=== PATIENT | female | born 1940 | race Caucasian/White ===

== ENCOUNTER 2016-07-10 11:30 | Inpatient (IN) | payer MEDICARE, MEDICAID ==
[2016-07-14] MEDS ORDERED: ceFAZolin 1 GM in NORMAL SALINE MINI-BAG+ 100 ML IV SCH (21:01)
[2016-07-15] MEDS ORDERED: MIDAZOLAM HCL 2 MG/2 ML SYR IV ONE (06:49)
[2016-07-15] MEDS ORDERED: LIDOCAINE HCL 1% 20 ML VIAL SUBCUT ONE ×2 (06:49→13:00)
[2016-07-15] MEDS ORDERED: ceFAZolin 1 GM in NORMAL SALINE MINI-BAG+ 100 ML IV SCH (06:50)
[2016-07-15] MEDS ORDERED: TRANEXAMIC ACID 1,000 MG in NORMAL SALINE 100 ML IV SCH ×2 (07:00)
[2016-07-15] MEDS ORDERED: FAMOTIDINE IN SALINE, ISO-OSM 20 MG/50 ML PIGGYBACK IV SCH (07:00)
[2016-07-15] MEDS ORDERED: LACTATED RINGERS 1,000 ML IV SCH ×3 (07:00→13:00)
[2016-07-15] MEDS ORDERED: MORPHINE SULFATE/PF 10 MG/10 ML VIAL ONE ×2 (07:05→07:10)
[2016-07-15] MEDS ORDERED: KETOROLAC TROMETHAMINE 30 MG/ML VIAL ONE (07:05)
[2016-07-15] MEDS ORDERED: BACITRACIN 14 APP/14 GM TUBE TOPICAL ONE (07:06)
[2016-07-15] MEDS ORDERED: BACITRACIN 50,000 UNITS VIAL IM ONE (07:07)
[2016-07-15] MEDS ORDERED: ROPIVACAINE HCL 0.5% 30 ML ONE (07:07)
[2016-07-15] MEDS ORDERED: PHENYLEPHRINE HCL 10,000 MCG/ML VIAL ONE (07:09)
[2016-07-15] MEDS ORDERED: FENTANYL 100 MCG/2 ML VIAL ONE (07:09)
[2016-07-15] MEDS ORDERED: EPHEDrine SULFATE 50 MG/ML VIAL ONE (07:10)
[2016-07-15] MEDS ORDERED: NORMAL SALINE FLUSH 20 ML ONE (07:10)
[2016-07-15] MEDS ORDERED: TETRACAINE HCL 1% 20 MG/2 ML AMP ONE ×2 (07:10→11:50)
[2016-07-15] MEDS ORDERED: ceFAZolin 1 GM/10 ML VIAL ONE (07:11)
[2016-07-15] MEDS ORDERED: TRANEXAMIC ACID 1,000 MG/10 ML VIAL IV ONE ×2 (07:11→17:00)
[2016-07-15] MEDS ORDERED: MIDAZOLAM HCL 2 MG/2 ML VIAL ONE (07:11)
[2016-07-15] MEDS ORDERED: KETAMINE HCL 500 MG/10 ML VIAL ONE (12:31)
[2016-07-15] MEDS ORDERED: NALBUPHINE HCL 10 MG/ML AMP IV PRN ×2 (13:00→15:40)
[2016-07-15] MEDS ORDERED: NALOXONE HCL 0.4 MG/ML VIAL IV PRN ×6 (13:00→15:40)
[2016-07-15] MEDS ORDERED: DIPHENHYDRAMINE 25 MG CAPSULE PO PRN ×2 (13:00→15:40)
[2016-07-15] MEDS ORDERED: FENTANYL 100 MCG/2 ML VIAL IV PRN (13:00)
[2016-07-15] MEDS ORDERED: MORPHINE SULFATE 10 MG/ML SYR IV PRN (13:00)
[2016-07-15] MEDS ORDERED: HYDROmorphone HCL 1 MG/ML SYR IV PRN (13:00)
[2016-07-15] MEDS ORDERED: DIPHENHYDRAMINE 50 MG/ML VIAL IV PRN ×2 (13:00→15:40)
[2016-07-15] MEDS ORDERED: ONDANSETRON HCL 4 MG/2 ML VIAL IV PRN ×2 (13:00→15:40)
--- NOTE | 2016-07-15 16:06 | OPERATIVE REPORT ---
DATE OF SURGERY: 07/15/16 SURGEON: Derik Lebron DO ANESTHESIA: Spinal with sedation. PREOPERATIVE DIAGNOSIS: Right knee osteoarthritis. POSTOPERATIVE DIAGNOSIS: Right knee osteoarthritis. OPERATION PERFORMED: Right total knee arthroplasty. ESTIMATED BLOOD LOSS: 50 mL. COMPLICATIONS: None. TOTAL TOURNIQUET TIME: 80 minutes. SPECIMENS REMOVED: Diseased bone and soft tissue. ORTHOPEDIC IMPLANTS 1. John Persona cobalt bone cement with Gentamycin. 2. John Persona personalized knee system all polyethylene patella 35 mm diameter, 9 mm thickness. 3. John Persona Vivacit E highly crossed linked polyethylene articular surface fixed bearing posterior stabilized right 10 mm thickness. 4. John Persona natural tibia cemented 5 degree stemmed right size E. 5. John Persona femur cemented posterior stabilized narrow right size 9. PROCEDURE NOTE: The patient was given a spinal anesthetic in the preoperative holding area and was brought to the OR and the right lower extremity was prepped and draped in sterile fashion after applying a well padded tourniquet to the right proximal thigh. A midline longitudinal incision was made and the dissection was carried down to the extensor mechanism. A medial parapatellar arthrotomy was made and series of soft tissue releases were completed, and the portion of the anterior fat pad was removed for visualization purposes. The meniscus was also removed as was the anterior cruciate ligament. The knee was brought up into flexion and a intramedullary femoral guide was placed followed by application of a femoral cutting jig, an appropriate distal femoral cut was made and the extramedullary tibial guide was then placed and the tibia was cut as appropriate heights with 10 mm and 2 mm of bone removed for the lateral and medial compartments respectively. Instrumentation was removed and a 10 mm spacer block was placed which was pretty tight both medially and laterally in extension, so an additional 2 mm was removed from the distal tibia and has had good balancing of the knee with the Ranawat block. The remainder of the femoral cuts were made with the cutting block of the appropriate size. All the tibial bone defects were then made and the trial implants were inserted and taken through a full range of motion and was noted to be exceptionally stable and well balanced. The patellar cut was then made and the patellar button was inserted after doing the femoral bone cuts and drill holes. All the appropriate bone defects were completed and the trial implants removed, and the knee was copiously irrigated with bacitracin infused with normal saline. The bone was tamped dry and brought up into flexion. The cement was impacted and interdigitated into the bony surfaces, followed by application of the prosthetic implants. A trial polyethylene was inserted and the knee was brought up into full extension. All excess cement was removed throughout the cementing process. The patellar button was also cemented into place. After the cement had hardened, the tourniquet was let down and any small bleeders were cauterized with an electrocautery device. The knee was copiously irrigated with bacitracin infused with normal saline. A Hemovac drain was placed and the final polyethylene was snapped into place. The knee was well balanced in both flexion and extension. The knee was closed in a stepwise fashion utilizing #2 Fiberwire for the medial parapatellar arthrotomy intermittently with #1 Vicryl. The remainder of the closure was completed with # 1 Vicryl, 0 Vicryl, 2-0 Vicryl and a 4-0 Monocryl run subcutaneously at the level of the skin, followed by application of Dermabond and an Aquacel occlusive dressing, followed by an Alexandre bandage. MICHEL
[2016-07-15] MEDS ORDERED: TRANEXAMIC ACID 1,000 MG in NORMAL SALINE MINI-BAG+ 100 ML IV ONE (16:40)
[2016-07-15] MEDS ORDERED: LACTATED RINGERS 1,000 ML IV ONE (17:08)
[2016-07-15] MEDS: ceFAZolin 1 GM in NORMAL SALINE MINI-BAG+ 100 ML IV SCH (17:52)
[2016-07-15] MEDS: DOCUSATE SODIUM 100 MG CAPSULE PO SCH (20:35)
[2016-07-15] MEDS: ASCORBIC ACID 500 MG TABLET PO SCH (20:36)
[2016-07-15] MEDS: HYDROcodone/APAP 5/325 MG 1 TAB TABLET PO PRN (20:36)
[2016-07-15] MEDS: ENOXAPARIN SODIUM 30 MG/0.3 ML SYR SUBCUT SCH (20:43)
[2016-07-16] MEDS: ceFAZolin 1 GM in NORMAL SALINE MINI-BAG+ 100 ML IV SCH ×2 (00:51→08:24)
[2016-07-16] MEDS: HYDROcodone/APAP 5/325 MG 1 TAB TABLET PO PRN ×4 (04:15→20:05)
[2016-07-16 05:27] LABS: EOSINOPHILS 2.8 % (0.0-6.0); EOSINOPHILS# 0.1 X 10^3uL (0.0-0.4); HEMATOCRIT 36.5 % (36.0-48.0); HEMOGLOBIN 12.3 g/dL (12.0-16.0); LYMPHOCYTES 28.2 % (20.0-40.0); LYMPHOCYTES# 1.3 X 10^3uL (0.8-3.8); MEAN CELL VOLUME 88.4 fL (80.0-100.0); MEAN CORPUS. HGB CONCENTRATION 33.6 g/dL (32.0-36.0); MEAN CORPUSCULAR HEMOGLOBIN 29.7 pg (29.0-35.0); MONOCYTES# 0.4 X 10^3uL (0.2-1.0); NEUTROPHILS# 2.8 X 10^3uL (2.6-6.7); RED BLOOD COUNT 4.13 X 10^6uL (4.20-6.10); RED CELL DISTRIBUTION WIDTH 12.4 % (11.5-14.5); WHITE BLOOD COUNT 4.6 X 10^3uL (3.9-10.7)
[2016-07-16] MEDS: ACETAMINOPHEN 325 MG TABLET PO PRN (06:44)
[2016-07-16] MEDS: MULTIVITAMINS THERAPEUTIC 1 TABLET PO SCH (08:21)
[2016-07-16] MEDS: BISACODYL 5 MG TABLET PO SCH (08:21)
[2016-07-16] MEDS: DOCUSATE SODIUM 100 MG CAPSULE PO SCH ×2 (08:22→20:05)
[2016-07-16] MEDS: FOLIC ACID 1 MG TABLET PO SCH (08:22)
[2016-07-16] MEDS: ASCORBIC ACID 500 MG TABLET PO SCH ×2 (08:22→20:05)
[2016-07-16] MEDS: ENOXAPARIN SODIUM 30 MG/0.3 ML SYR SUBCUT SCH ×2 (08:24→20:05)
[2016-07-16] MEDS: POLYETHYLENE GLYCOL 3350 17 GM POWD.PACK PO SCH (08:30)
--- NOTE | 2016-07-16 08:59 | PROGRESS NOTE: Orthopedics ---
Orthopedic PN Subjective - Subjective Principal Diagnosis: s/p right total knee arthroplasty Post-op Day: 1 Interval history: Patient did well overnight. Her pain was well-controlled. Tolerating a regular diet Hemovac output was low. Ortho PN Objective Exam - Latest Vital Signs and I&O Latest Vital Signs/I&O: Vital Signs Temp 37.2 C 07/16/16 06:28 Pulse 61 07/16/16 06:28 Resp 17 07/16/16 06:28 BP 149/66 07/16/16 06:28 Pulse Ox 93 07/16/16 06:28 Intake & Output 07/15/16 07/16/16 07/16/16 17:59 05:59 17:59 Intake Total 3150 1200 Output Total 330 480 Balance 2820 720 Weight 72.575 kg Intake: IV 2900 700 Right Wrist 2900 700 Oral 250 500 Output: Drainage 60 230 Right Knee 60 230 Urine 270 250 Other: Urine Appearance Clear Clear Urine Color Yellow Light Sharla Uretheral (Sorto) Yellow Voiding Method Indwelling Catheter Indwelling Catheter # Bowel Movements 0 - Post-Operative Exam Post-op Day: 1 Dressing Status: dry & intact Drainage Amount: none Distal Pulses: +2 Active Motor: intact Sensation: intact Myron's sign: Negative Calf tenderness: no Weight bearing status: as tolerated - Lab Labs: Laboratory Last Values WBC 4.6 X 10^3uL (3.9-10.7) 07/16/16 05:00 RBC 4.13 X 10^6uL (4.20-6.10) L 07/16/16 05:00 Hgb 12.3 g/dL (12.0-16.0) 07/16/16 05:00 Hct 36.5 % (36.0-48.0) 07/16/16 05:00 MCV 88.4 fL (80.0-100.0) 07/16/16 05:00 MCH 29.7 pg (29.0-35.0) 07/16/16 05:00 MCHC 33.6 g/dL (32.0-36.0) 07/16/16 05:00 RDW 12.4 % (11.5-14.5) 07/16/16 05:00 Plt Count 132 X 10^3uL (130-440) 07/16/16 05:00 MPV 8.0 fL (7.4-10.4) 07/16/16 05:00 Neutrophils % 59.0 % (54.0-75.0) 07/16/16 05:00 Lymphocytes % 28.2 % (20.0-40.0) 07/16/16 05:00 Eosinophils % 2.8 % (0.0-6.0) 07/16/16 05:00 Basophils % 1.0 % (0.0-2.0) 07/16/16 05:00 Neutrophils # 2.8 X 10^3uL (2.6-6.7) 07/16/16 05:00 Lymphocytes # 1.3 X 10^3uL (0.8-3.8) 07/16/16 05:00 Monocytes 9.0 % (2.0-10.0) 07/16/16 05:00 Monocytes # 0.4 X 10^3uL (0.2-1.0) 07/16/16 05:00 Eosinophils # 0.1 X 10^3uL (0.0-0.4) 07/16/16 05:00 Basophils # 0.0 X 10^3uL (0.0-0.1) 07/16/16 05:00 Assessment and Plan-Ortho - Date of Encounter Date of Encounter: 07/16/16 (1) Status post total knee replacement, right Status: Acute Assessment and plan: The patient will be up and ambulating with physical therapy. We will continue with DVT and antibiotic prophylaxis. Current Visit: Yes Quality Questions - VTE Prophylaxis Assessment VTE Present on Admission?: No Patient at risk for venous thromboembolism?: Yes VTE Risk Level: High Risk Pharmaceutical VTE prophylaxis contraindication reason: not indicated Mechanical VTE prophylaxis contraindication reason: not indicated
[2016-07-16] MEDS: LACTATED RINGERS 1,000 ML IV SCH ×2 (10:10→11:50)
[2016-07-17] MEDS: LACTATED RINGERS 1,000 ML IV SCH (00:04)
[2016-07-17] MEDS: HYDROcodone/APAP 5/325 MG 1 TAB TABLET PO PRN ×4 (02:35→21:44)
[2016-07-17 05:44] LABS: BASOPHILS 0.2 % (0.0-2.0); EOSINOPHILS 1.7 % (0.0-6.0); EOSINOPHILS# 0.1 X 10^3uL (0.0-0.4); HEMATOCRIT 33.9 % (36.0-48.0); HEMOGLOBIN 11.4 g/dL (12.0-16.0); LYMPHOCYTES 12.9 % (20.0-40.0); LYMPHOCYTES# 0.8 X 10^3uL (0.8-3.8); MEAN CELL VOLUME 88.2 fL (80.0-100.0); MEAN CORPUS. HGB CONCENTRATION 33.5 g/dL (32.0-36.0); MEAN CORPUSCULAR HEMOGLOBIN 29.6 pg (29.0-35.0); MEAN PLATELET VOLUME 8.4 fL (7.4-10.4); MONOCYTES 8.4 % (2.0-10.0); MONOCYTES# 0.5 X 10^3uL (0.2-1.0); NEUTROPHILS 76.8 % (54.0-75.0); NEUTROPHILS# 4.5 X 10^3uL (2.6-6.7); RED BLOOD COUNT 3.84 X 10^6uL (4.20-6.10); RED CELL DISTRIBUTION WIDTH 11.9 % (11.5-14.5); WHITE BLOOD COUNT 5.9 X 10^3uL (3.9-10.7)
[2016-07-17] MEDS: MULTIVITAMINS THERAPEUTIC 1 TABLET PO SCH (08:05)
[2016-07-17] MEDS: ASCORBIC ACID 500 MG TABLET PO SCH ×2 (08:05→11:03)
[2016-07-17] MEDS: DOCUSATE SODIUM 100 MG CAPSULE PO SCH ×2 (08:05→21:43)
[2016-07-17] MEDS: ENOXAPARIN SODIUM 30 MG/0.3 ML SYR SUBCUT SCH ×2 (08:05→21:43)
[2016-07-17] MEDS: BISACODYL 5 MG TABLET PO SCH (08:05)
[2016-07-17] MEDS: FOLIC ACID 1 MG TABLET PO SCH (08:05)
[2016-07-17] MEDS: POLYETHYLENE GLYCOL 3350 17 GM POWD.PACK PO SCH (08:05)
[2016-07-17] MEDS ORDERED: traZODone HCL 50 MG TABLET PO SCH (11:00)
[2016-07-17] MEDS ORDERED: ATORVASTATIN CALCIUM 10 MG TABLET PO SCH (11:00)
[2016-07-17] MEDS: LISINOPRIL 20 MG TABLET PO SCH (11:09)
[2016-07-17] MEDS: CALCIUM/VIT D 600 MG/400 IU 1 TAB TABLET PO SCH (11:09)
[2016-07-17] MEDS: AMLODIPINE BESYLATE 5 MG TABLET PO SCH (11:09)
[2016-07-17] MEDS: PAROXETINE HCL 20 MG TABLET PO SCH (11:10)
[2016-07-17] MEDS: HYDROCHLOROTHIAZIDE 25 MG TABLET PO SCH (11:10)
--- NOTE | 2016-07-17 15:19 | RADIOLOGY REPORT ---
Two views of the right knee are compared with prior films dated 04/16/2016. There has been interval placement of a right total knee arthroplasty. Components appear intact and in appropriate position. No other change is identified. IMPRESSION: Unremarkable right total knee arthroplasty. MTDD
[2016-07-17] MEDS ORDERED: [UNRECOGNIZED DRUG - OTHER] OPHTHALMIC SCH (21:00)
[2016-07-17] MEDS ORDERED: MINERAL OIL OPHTHALMIC SCH (21:00)
[2016-07-17] MEDS ORDERED: PETROLATUM WHITE OPHTHALMIC SCH (21:00)
[2016-07-17] MEDS: traZODone HCL 50 MG TABLET PO SCH (21:43)
[2016-07-17] MEDS: ATORVASTATIN CALCIUM 10 MG TABLET PO SCH (21:43)
[2016-07-17] MEDS: POLYVINYL ALCOHOL 1.4% OPHTH 75 DROP/15 ML BTL OPHTHALMIC SCH (21:44)
[2016-07-18] MEDS: SENNOSIDES/DOCUSATE SODIUM 1 TAB TABLET PO SCH (05:17)
[2016-07-18] MEDS: HYDROcodone/APAP 5/325 MG 1 TAB TABLET PO PRN ×3 (05:17→21:04)
[2016-07-18 05:55] LABS: BASOPHILS 0.8 % (0.0-2.0); EOSINOPHILS 2.1 % (0.0-6.0); EOSINOPHILS# 0.1 X 10^3uL (0.0-0.4); HEMATOCRIT 33.9 % (36.0-48.0); HEMOGLOBIN 11.4 g/dL (12.0-16.0); LYMPHOCYTES 22.2 % (20.0-40.0); LYMPHOCYTES# 1.1 X 10^3uL (0.8-3.8); MEAN CELL VOLUME 87.6 fL (80.0-100.0); MEAN CORPUS. HGB CONCENTRATION 33.8 g/dL (32.0-36.0); MEAN CORPUSCULAR HEMOGLOBIN 29.6 pg (29.0-35.0); MEAN PLATELET VOLUME 8.5 fL (7.4-10.4); MONOCYTES 8.5 % (2.0-10.0); MONOCYTES# 0.4 X 10^3uL (0.2-1.0); NEUTROPHILS 66.4 % (54.0-75.0); NEUTROPHILS# 3.4 X 10^3uL (2.6-6.7); RED BLOOD COUNT 3.87 X 10^6uL (4.20-6.10); RED CELL DISTRIBUTION WIDTH 12.3 % (11.5-14.5)
[2016-07-18] MEDS: CALCIUM/VIT D 600 MG/400 IU 1 TAB TABLET PO SCH (08:32)
[2016-07-18] MEDS: DOCUSATE SODIUM 100 MG CAPSULE PO SCH ×2 (08:33→20:35)
[2016-07-18] MEDS: BISACODYL 5 MG TABLET PO SCH (08:33)
[2016-07-18] MEDS: FOLIC ACID 1 MG TABLET PO SCH (08:34)
[2016-07-18] MEDS: HYDROCHLOROTHIAZIDE 25 MG TABLET PO SCH (08:35)
[2016-07-18] MEDS: ENOXAPARIN SODIUM 30 MG/0.3 ML SYR SUBCUT SCH ×2 (08:36→20:41)
[2016-07-18] MEDS: POLYETHYLENE GLYCOL 3350 17 GM POWD.PACK PO SCH (08:37)
[2016-07-18] MEDS: MULTIVITAMINS THERAPEUTIC 1 TABLET PO SCH (08:40)
[2016-07-18] MEDS: PAROXETINE HCL 20 MG TABLET PO SCH (08:43)
[2016-07-18] MEDS: ASCORBIC ACID 500 MG TABLET PO SCH (08:43)
[2016-07-18] MEDS: LISINOPRIL 20 MG TABLET PO SCH (08:44)
[2016-07-18] MEDS: AMLODIPINE BESYLATE 5 MG TABLET PO SCH (08:45)
[2016-07-18] MEDS: ACETAMINOPHEN 325 MG TABLET PO PRN (08:50)
--- NOTE | 2016-07-18 15:25 | PROGRESS NOTE: Orthopedics ---
Orthopedic PN Subjective - Subjective Principal Diagnosis: s/p TKA Post-op Day: 2 Interval history: Pt seen and examined at bedside on 07/17/16 on post op day 2. Pt doing well. Ambulating. Some difficulty with transfers. Tolerating reg diet. Pain controlled. Ortho PN Objective Exam - Latest Vital Signs and I&O Latest Vital Signs/I&O: Vital Signs Temp 37.7 C H 07/18/16 11:00 Pulse 77 07/18/16 11:00 Resp 16 07/18/16 11:00 BP 117/54 07/18/16 11:00 Pulse Ox 95 07/18/16 11:00 Intake & Output 07/17/16 07/18/16 07/18/16 17:59 05:59 17:59 Intake Total 1100 450 Output Total 1200 1200 Balance -100 -750 Intake: Oral 1100 450 Output: Urine 1200 1200 Other: Urine Appearance Clear Clear Clear Urine Color Straw Light Sharla Straw Voiding Method Toilet Toilet # Bowel Movements 0 - Post-Operative Exam Post-op Day: 2 Dressing Status: dry & intact Drainage Amount: none Distal Pulses: +2 Active Motor: intact Sensation: intact Myron's sign: Negative Calf tenderness: no Weight bearing status: full - Lab Labs: Laboratory Last Values WBC 5.0 X 10^3uL (3.9-10.7) 07/18/16 05:00 RBC 3.87 X 10^6uL (4.20-6.10) L 07/18/16 05:00 Hgb 11.4 g/dL (12.0-16.0) L 07/18/16 05:00 Hct 33.9 % (36.0-48.0) L 07/18/16 05:00 MCV 87.6 fL (80.0-100.0) 07/18/16 05:00 MCH 29.6 pg (29.0-35.0) 07/18/16 05:00 MCHC 33.8 g/dL (32.0-36.0) 07/18/16 05:00 RDW 12.3 % (11.5-14.5) 07/18/16 05:00 Plt Count 126 X 10^3uL (130-440) L 07/18/16 05:00 MPV 8.5 fL (7.4-10.4) 07/18/16 05:00 Neutrophils % 66.4 % (54.0-75.0) 07/18/16 05:00 Lymphocytes % 22.2 % (20.0-40.0) 07/18/16 05:00 Eosinophils % 2.1 % (0.0-6.0) 07/18/16 05:00 Basophils % 0.8 % (0.0-2.0) 07/18/16 05:00 Neutrophils # 3.4 X 10^3uL (2.6-6.7) 07/18/16 05:00 Lymphocytes # 1.1 X 10^3uL (0.8-3.8) 07/18/16 05:00 Monocytes 8.5 % (2.0-10.0) 07/18/16 05:00 Monocytes # 0.4 X 10^3uL (0.2-1.0) 07/18/16 05:00 Eosinophils # 0.1 X 10^3uL (0.0-0.4) 07/18/16 05:00 Basophils # 0.0 X 10^3uL (0.0-0.1) 07/18/16 05:00 - Allied Health Notes Allied health notes reviewed: nursing, PT Assessment and Plan-Ortho - Date of Encounter Date of Encounter: 07/18/16 (1) Status post total knee replacement, right Status: Acute Assessment and plan: 07/17/2016, POD #2. The patient will be up and ambulating with physical therapy. We will continue with DVT prophylaxis. Needs to work on stairs and transfers. Current Visit: Yes
--- NOTE | 2016-07-18 15:28 | PROGRESS NOTE: Orthopedics ---
Orthopedic PN Subjective - Subjective Principal Diagnosis: s/p TKA Post-op Day: 3 Interval history: Pt doing better today. Ambulating. Still difficulty with transfers. Tolerating reg diet. Pain controlled. Ortho PN Objective Exam - Latest Vital Signs and I&O Latest Vital Signs/I&O: Vital Signs Temp 37.7 C H 07/18/16 11:00 Pulse 77 07/18/16 11:00 Resp 16 07/18/16 11:00 BP 117/54 07/18/16 11:00 Pulse Ox 95 07/18/16 11:00 Intake & Output 07/17/16 07/18/16 07/18/16 17:59 05:59 17:59 Intake Total 1100 450 Output Total 1200 1200 Balance -100 -750 Intake: Oral 1100 450 Output: Urine 1200 1200 Other: Urine Appearance Clear Clear Clear Urine Color Straw Light Sharla Straw Voiding Method Toilet Toilet # Bowel Movements 0 - Post-Operative Exam Post-op Day: 3 Dressing Status: dry & intact Drainage Amount: none Distal Pulses: +2 Active Motor: intact Sensation: intact Myron's sign: Negative Calf tenderness: no Weight bearing status: full - Lab Labs: Laboratory Last Values WBC 5.0 X 10^3uL (3.9-10.7) 07/18/16 05:00 RBC 3.87 X 10^6uL (4.20-6.10) L 07/18/16 05:00 Hgb 11.4 g/dL (12.0-16.0) L 07/18/16 05:00 Hct 33.9 % (36.0-48.0) L 07/18/16 05:00 MCV 87.6 fL (80.0-100.0) 07/18/16 05:00 MCH 29.6 pg (29.0-35.0) 07/18/16 05:00 MCHC 33.8 g/dL (32.0-36.0) 07/18/16 05:00 RDW 12.3 % (11.5-14.5) 07/18/16 05:00 Plt Count 126 X 10^3uL (130-440) L 07/18/16 05:00 MPV 8.5 fL (7.4-10.4) 07/18/16 05:00 Neutrophils % 66.4 % (54.0-75.0) 07/18/16 05:00 Lymphocytes % 22.2 % (20.0-40.0) 07/18/16 05:00 Eosinophils % 2.1 % (0.0-6.0) 07/18/16 05:00 Basophils % 0.8 % (0.0-2.0) 07/18/16 05:00 Neutrophils # 3.4 X 10^3uL (2.6-6.7) 07/18/16 05:00 Lymphocytes # 1.1 X 10^3uL (0.8-3.8) 07/18/16 05:00 Monocytes 8.5 % (2.0-10.0) 07/18/16 05:00 Monocytes # 0.4 X 10^3uL (0.2-1.0) 07/18/16 05:00 Eosinophils # 0.1 X 10^3uL (0.0-0.4) 07/18/16 05:00 Basophils # 0.0 X 10^3uL (0.0-0.1) 07/18/16 05:00 - Allied Health Notes Allied health notes reviewed: nursing, PT Assessment and Plan-Ortho - Date of Encounter Date of Encounter: 07/18/16 (1) Status post total knee replacement, right Status: Acute Assessment and plan: 07/17/2016, POD #2. Up and ambulate with physical therapy. Continue with DVT prophylaxis. Still needs to work on stairs and transfers. Agree with PTx: not ready for d/c home. May be good candidate for Swing Bed tomorrow if not ready for home. Current Visit: Yes
[2016-07-18] MEDS: ATORVASTATIN CALCIUM 10 MG TABLET PO SCH (20:40)
[2016-07-18] MEDS: traZODone HCL 50 MG TABLET PO SCH (20:40)
[2016-07-18] MEDS: POLYVINYL ALCOHOL 1.4% OPHTH 75 DROP/15 ML BTL OPHTHALMIC SCH (20:41)
[2016-07-19] MEDS: HYDROcodone/APAP 5/325 MG 1 TAB TABLET PO PRN ×5 (06:00→21:20)
[2016-07-19] MEDS: ACETAMINOPHEN 325 MG TABLET PO PRN (07:26)
--- NOTE | 2016-07-19 08:35 | PROGRESS NOTE: Orthopedics ---
Orthopedic PN Subjective - Subjective Principal Diagnosis: s/p right TK Post-op Day: 4 Interval history: Ambulating well, but having nausea and diarrhea. pain controlled. Tolerating PO. Ortho PN Objective Exam - Latest Vital Signs and I&O Latest Vital Signs/I&O: Vital Signs Temp 37.1 C 07/19/16 06:19 Pulse 58 L 07/19/16 06:19 Resp 16 07/19/16 06:19 BP 106/55 07/19/16 06:19 Pulse Ox 94 07/19/16 06:19 Intake & Output 07/18/16 07/19/16 07/19/16 17:59 05:59 17:59 Intake Total 1030 100 Output Total 600 Balance 430 100 Intake: Oral 1030 100 Output: Urine 600 Other: Urine Appearance Clear Clear Urine Color Pale Yellow Yellow Stool Size Large Copious Stool Characteristics Formed Liquid Brown Voiding Method Toilet Toilet # Voids 3 3 # Bowel Movements 1 4 - Post-Operative Exam Post-op Day: 4 Dressing Status: dry & intact Distal Pulses: +2 Active Motor: intact Sensation: intact Myron's sign: Negative Calf tenderness: no Weight bearing status: full - Lab Labs: Laboratory Last Values WBC 5.0 X 10^3uL (3.9-10.7) 07/18/16 05:00 RBC 3.87 X 10^6uL (4.20-6.10) L 07/18/16 05:00 Hgb 11.4 g/dL (12.0-16.0) L 07/18/16 05:00 Hct 33.9 % (36.0-48.0) L 07/18/16 05:00 MCV 87.6 fL (80.0-100.0) 07/18/16 05:00 MCH 29.6 pg (29.0-35.0) 07/18/16 05:00 MCHC 33.8 g/dL (32.0-36.0) 07/18/16 05:00 RDW 12.3 % (11.5-14.5) 07/18/16 05:00 Plt Count 126 X 10^3uL (130-440) L 07/18/16 05:00 MPV 8.5 fL (7.4-10.4) 07/18/16 05:00 Neutrophils % 66.4 % (54.0-75.0) 07/18/16 05:00 Lymphocytes % 22.2 % (20.0-40.0) 07/18/16 05:00 Eosinophils % 2.1 % (0.0-6.0) 07/18/16 05:00 Basophils % 0.8 % (0.0-2.0) 07/18/16 05:00 Neutrophils # 3.4 X 10^3uL (2.6-6.7) 07/18/16 05:00 Lymphocytes # 1.1 X 10^3uL (0.8-3.8) 07/18/16 05:00 Monocytes 8.5 % (2.0-10.0) 07/18/16 05:00 Monocytes # 0.4 X 10^3uL (0.2-1.0) 07/18/16 05:00 Eosinophils # 0.1 X 10^3uL (0.0-0.4) 07/18/16 05:00 Basophils # 0.0 X 10^3uL (0.0-0.1) 07/18/16 05:00 - Allied Health Notes Allied health notes reviewed: nursing, PT Assessment and Plan-Ortho - Date of Encounter Date of Encounter: 07/19/16 (1) Status post total knee replacement, right Status: Acute Assessment and plan: 07/17/2016, POD #2. Up and ambulate with physical therapy. Continue with DVT prophylaxis. Not ready for d/c home today. Needs OT evaluation. Probable d/c home in AM. Current Visit: Yes
[2016-07-19] MEDS: AMLODIPINE BESYLATE 5 MG TABLET PO SCH (08:53)
[2016-07-19] MEDS: LISINOPRIL 20 MG TABLET PO SCH (08:54)
[2016-07-19] MEDS: HYDROCHLOROTHIAZIDE 25 MG TABLET PO SCH (08:55)
[2016-07-19] MEDS: PAROXETINE HCL 20 MG TABLET PO SCH (08:55)
[2016-07-19] MEDS: CALCIUM/VIT D 600 MG/400 IU 1 TAB TABLET PO SCH (08:55)
[2016-07-19] MEDS: ASCORBIC ACID 500 MG TABLET PO SCH (08:55)
[2016-07-19] MEDS: FOLIC ACID 1 MG TABLET PO SCH (08:57)
[2016-07-19] MEDS: DOCUSATE SODIUM 100 MG CAPSULE PO SCH ×2 (08:57→20:53)
[2016-07-19] MEDS: MULTIVITAMINS THERAPEUTIC 1 TABLET PO SCH (08:57)
[2016-07-19] MEDS: BISACODYL 5 MG TABLET PO SCH (08:58)
[2016-07-19] MEDS: ENOXAPARIN SODIUM 30 MG/0.3 ML SYR SUBCUT SCH ×2 (08:58→20:44)
[2016-07-19] MEDS: POLYETHYLENE GLYCOL 3350 17 GM POWD.PACK PO SCH (08:58)
[2016-07-19] MEDS: SENNOSIDES/DOCUSATE SODIUM 1 TAB TABLET PO SCH ×2 (13:49→20:53)
[2016-07-19] MEDS: traZODone HCL 50 MG TABLET PO SCH (20:42)
[2016-07-19] MEDS: ATORVASTATIN CALCIUM 10 MG TABLET PO SCH (20:43)
[2016-07-19] MEDS: POLYVINYL ALCOHOL 1.4% OPHTH 75 DROP/15 ML BTL OPHTHALMIC SCH (20:52)
[2016-07-20 08:48] VITALS: O2SAT 93
[2016-07-20] MEDS: AMLODIPINE BESYLATE 5 MG TABLET PO SCH (09:10)
[2016-07-20] MEDS: ENOXAPARIN SODIUM 30 MG/0.3 ML SYR SUBCUT SCH (09:10)
[2016-07-20] MEDS: DOCUSATE SODIUM 100 MG CAPSULE PO SCH (09:11)
[2016-07-20] MEDS: LISINOPRIL 20 MG TABLET PO SCH (09:11)
[2016-07-20] MEDS: MULTIVITAMINS THERAPEUTIC 1 TABLET PO SCH (09:11)
[2016-07-20] MEDS: HYDROCHLOROTHIAZIDE 25 MG TABLET PO SCH (09:11)
[2016-07-20] MEDS: PAROXETINE HCL 20 MG TABLET PO SCH (09:11)
[2016-07-20] MEDS: CALCIUM/VIT D 600 MG/400 IU 1 TAB TABLET PO SCH (09:11)
[2016-07-20] MEDS: FOLIC ACID 1 MG TABLET PO SCH (09:11)
[2016-07-20] MEDS: BISACODYL 5 MG TABLET PO SCH (09:12)
[2016-07-20] MEDS: POLYETHYLENE GLYCOL 3350 17 GM POWD.PACK PO SCH (09:12)
[2016-07-20] MEDS: ASCORBIC ACID 500 MG TABLET PO SCH (09:12)
[2016-07-20] MEDS: ACETAMINOPHEN 325 MG TABLET PO PRN (09:15)
--- NOTE | 2016-07-20 11:04 | DC SUMMARY: Orthopedic Note ---
Discharge Summary: Surg/OB Provider: Date of Admission: 07/15/16 Admitting Provider: JUAN PINEDA DO Attending Provider: JUAN PINEDA DO Discharging Provider: JUAN PINEDA DO Primary Care Provider: Discharge Date: 07/20/16 - Diagnosis (1) Status post total knee replacement, right Status: Acute Hospital Course: Ms. REZA is a 75 year old female who underwent a total knee arthroplasty On July 15. She received appropriate postoperative DVT and antibiotic prophylaxis. She did have some nausea and vomiting but that has improved. She is now doing well. She is transferring well. She is ambulating well. Pain is well controlled with hydrocodone. Discharge - Patient/Caregiver Discharge Instructions Activity Level: WBAT Diet: REG Additional Instructions: THE PATIENT WILL LEAVE THE DRESSING IN PLACE. sHE WILL FOLLOW UP IN 8-10 DAYS POSTOP. sHE WILL USE HER lOVENOX FOR A TOTAL OF 14 DAYS IN ADDITION TO HER TEDS HOSE. Overall discharge status: patient is progressing back to baseline Home Medications: HYDROcodone/APAP 5/325 MG [HYDROCODONE/APAP 5mg/325mg*] 1 - 2 tab PO Q6H PRN # 60 tablet PRN Reason: Pain, Severe Enoxaparin Sodium [LOVENOX 30mg/0.3mL*] 30 mg SUBCUT BID #18 syr Orders: Outpatient Physical Therapy Eval & Treat Location: Determined By Patient Disposition: HOME HEALTH CARE Orthopedic: Discharge Phy Exam - Latest Vital Signs and I&O Latest Vital Signs/I&O: Vital Signs Temp 36.8 C 07/20/16 07:00 Pulse 76 07/20/16 07:00 Resp 16 07/20/16 09:00 BP 119/62 07/20/16 07:00 Pulse Ox 93 07/20/16 09:00 Intake & Output 07/19/16 07/20/16 07/20/16 17:59 05:59 17:59 Intake Total 780 500 Output Total 375 550 Balance 405 -50 Weight 72.575 kg Intake: Oral 780 500 Output: Urine 375 550 Other: Urine Appearance Clear Clear Clear Urine Color Dark Sharla Yellow Yellow Stool Size Copious Stool Characteristics Voiding Method Toilet Toilet Toilet - Post-Operative Exam Post-op Day: 5 Dressing Status: dry & intact Drainage Amount: none Distal Pulses: +2 Active Motor: intact Sensation: intact Myron's sign: Negative Calf tenderness: no Weight bearing status: full - Allied Health Notes Allied health notes reviewed: nursing, OT, PT Discharge Summary Data - Medication History Medication History: Home Medications Amlodipine Besylate [Norvasc*] 2.5 mg PO DAILY 07/16/16 Ascorbic Acid [Vitamin C*] 500 mg PO DAILY 07/16/16 Atorvastatin Calcium [Lipitor*] 20 mg PO HS 07/16/16 Calcium/Vit D 600 mg/400 Iu [Calcium 600/Vitamin D 400] 600 mg PO DAILY Hydrochlorothiazide [Hydrodiuril*] 12.5 mg PO DAILY 07/16/16 Lisinopril [Prinivil*] 40 mg PO DAILY 07/16/16 Lutein 20 mg PO DAILY 07/16/16 Mineral Oil/Petrolatum,White [Artificial Tears Eye Ointment] 1 osvaldo OPHTHALMIC HS 07/16/16 Paroxetine HCl [Paroxetine HCl*] 20 mg PO DAILY 07/16/16 Vitamin E Mixed [Vitamin E] 400 unit PO DAILY 07/16/16 aspirin [Lite Coat Aspirin] 162.5 mg PO EVERY OTHER DAY 07/16/16 aspirin [Lite Coat Aspirin] 325 mg PO EVERY OTHER DAY 07/16/16 traMADol HCL [Ultram*] 50 mg PO Q6H PRN 07/16/16 traZODone HCL [Trazodone HCl*] 50 mg PO HS 07/16/16 Inpatient Medications 07/15/16 15:40 Acetaminophen [Tylenol] 325 - 650 mg PO Q4H PRN HYDROcodone/APAP 5/325 MG [[place]] 2 tab PO Q3H PRN Ondansetron HCl [Zofran] 4 mg IV Q4H PRN oxyCODONE HCL IR [Oxy Ir] 5 - 10 mg PO Q3H PRN 07/15/16 21:00 Docusate Sodium [Colace] 100 mg PO BID Enoxaparin Sodium [Lovenox] 30 mg SUBCUT BID 07/16/16 09:00 Bisacodyl [Dulcolax] 10 mg PO DAILY Folic Acid [Folate] 1 mg PO DAILY Multivitamins,Therapeutic [Thera] 1 tab PO DAILY Polyethylene Glycol 3350 [miraLAX] 17 gm PO DAILY 07/16/16 10:00 Lactated Ringers [Lr 1000 ml Bag] 1,000 ml IV CONT 07/17/16 10:15 Calcium/Vit D 600 mg/400 Iu [Calcium 600/Vitamin D 400] 1 tab PO DAILY 07/17/16 11:00 Amlodipine Besylate [Norvasc] 2.5 mg PO DAILY Ascorbic Acid [Vitamin C] 500 mg PO DAILY Hydrochlorothiazide [Hydrodiuril] 12.5 mg PO DAILY Lisinopril [Prinivil] 40 mg PO DAILY Paroxetine HCl [Paxil] 20 mg PO DAILY 07/17/16 21:00 Atorvastatin Calcium [Lipitor] 20 mg PO HS Polyvinyl Alcohol 1.4% Ophth [Teargen] 1 drop OPHTHALMIC HS traZODone HCL [Desyrel] 50 mg PO HS 07/18/16 06:00 Sennosides/Docusate Sodium [Yesenia-Colace] 2 tab PO HS Procedures and tests throughout hospitalization: Completed Lab Orders 07/16/16 05:00 CBC AUTO DIF, MDIF/RMOR IF IND [HEM] AMDRAW 07/17/16 05:00 CBC AUTO DIF, MDIF/RMOR IF IND [HEM] AMDRAW 07/18/16 05:00 CBC AUTO DIF, MDIF/RMOR IF IND [HEM] AMDRAW Completed Imaging Orders 07/15/16 15:40 KNEE; [address] [place] [address] [RAD] Routine Completed Microbiology Orders 07/18/16 13:30 OCCULT BLOOD (1-3 SAMPLES) [RM] Pending Orders 07/14/16 21:01 Resuscitation Status Routine 07/14/16 21:06 Insert IV [Insert Peripheral IV] ONCE 07/15/16 06:49 Insert Peripheral IV ONCE 07/15/16 13:00 Cade hugger if temp <34 C PRN Did pt have a spinal/epidural? . Maintain IV access post spinal CONTINUOUS Monitor End Tidal CO2 CONTINUOUS Narcan @ bedside x24h after sp .x24hrs Notify Anesthesia . Oxygen by Nasal Cannula TITRATE TO >90% Titrate Oxygen TITRATE B/W 90-95% Vital Signs Q1HX12,Q2H Warm blankets if temp<36 C PRN 07/15/16 15:40 Admit: Inpatient Routine Activity: Ambulate with Assist TID Activity: BRP w/ Assist Only . Activity: FWB USE WALKER Activity: Knee Extension . Apply ice to affected area PRN Did pt have a spinal/epidural? . Incentive Spirometry Q1H Intake and Output QSHIFT I&O Notify Physician . Oxygen by Nasal Cannula TITRATE TO >90% Physician to change dressing PRN Sequential Compression Device WHILE IN BED NERISSA Hose CONTINUOUS Titrate Oxygen TITRATE B/W 90-95% Turn, Cough, and Deep Breathe Q2H Vital Signs ROUTINE VITALS (Q4H) [employer] Eng[employer]ver Consult [CM] Routine Acetaminophen [Tylenol] 325 - 650 mg PO Q4H PRN HYDROcodone/APAP 5/325 MG [[place]] 2 tab PO Q3H PRN Ondansetron HCl [Zofran] 4 mg IV Q4H PRN oxyCODONE HCL IR [Oxy Ir] 5 - 10 mg PO Q3H PRN 07/15/16 21:00 Docusate Sodium [Colace] 100 mg PO BID Enoxaparin Sodium [Lovenox] 30 mg SUBCUT BID 07/15/16 Dinner Regular [DIET] 07/16/16 09:00 Bisacodyl [Dulcolax] 10 mg PO DAILY Folic Acid [Folate] 1 mg PO DAILY Multivitamins,Therapeutic [Thera] 1 tab PO DAILY Polyethylene Glycol 3350 [miraLAX] 17 gm PO DAILY 07/16/16 10:00 Lactated Ringers [Lr 1000 ml Bag] 1,000 ml IV CONT 07/16/16 11:07 Physical Therapy Plan of Care [PT] Routine 07/17/16 10:15 Calcium/Vit D 600 mg/400 Iu [Calcium 600/Vitamin D 400] 1 tab PO DAILY 07/17/16 11:00 Amlodipine Besylate [Norvasc] 2.5 mg PO DAILY Ascorbic Acid [Vitamin C] 500 mg PO DAILY Hydrochlorothiazide [Hydrodiuril] 12.5 mg PO DAILY Lisinopril [Prinivil] 40 mg PO DAILY Paroxetine HCl [Paxil] 20 mg PO DAILY 07/17/16 21:00 Atorvastatin Calcium [Lipitor] 20 mg PO HS Polyvinyl Alcohol 1.4% Ophth [Teargen] 1 drop OPHTHALMIC HS traZODone HCL [Desyrel] 50 mg PO HS 07/18/16 06:00 Sennosides/Docusate Sodium [Yesenia-Colace] 2 tab PO HS 07/19/16 08:40 ot [Occupation Therapy Eval and Treat] [OT] Routine 07/19/16 15:32 Occupational Therapy Plan of Care [OT] Routine
[2016-07-20 12:19] VITALS: BP 94/56; PULSE 94; RESP 12; TEMP 99.2
--- NOTE | 2016-07-25 08:08 | PREOPERATIVE H&P ---
History of Present Illness (Derik Lebron ; 07/09/2016 3:08 PM) The patient is a 75 year old female. The patient presents for her preoperative visit prior to her right total knee arthroplasty next week. She has had significant right knee pain for years and has not improved despite conservative treatment. Problem List/Past Medical (Derik Lebron DO; 07/09/2016 3:08 PM) Primary osteoarthritis of right knee (M17.11) Right knee pain (M25.561) CVA Patient states she had a left-sided hemorrhagic stroke 11/2012. (Z86.73) Squamous blepharitis of upper and lower eyelids of both eyes (H01.021, H01.022, H01.024,H01.) 04/16/16. Hypertension(I10) Osteoarthritis(M15.9) Hyperlipidemia(E78.5) Depression(F32.9) Allergies (Dea Pond RN; 07/09/2016 9:04 AM) Sulfa Drugs (Bactrim, Pediazole, Septra...) caused a rash. Family History (Dea Pond RN; 07/09/2016 9:04 AM) Sister Glaucoma Sister 1 Macular degeneration Social History (Dea Pond RN; 07/09/2016 9:04 AM) Alcohol Use None. Tobacco Use Never smoker. Vehicle Driving Yes. Medication History (Dea Pond RN; 07/09/2016 9:04 AM) Nmjvlrlz-Rktlwnpfz-Yhfynupl (0.1% Suspension, 1 (one) drop Ophthalmic two times daily, both eyes, Taken starting 04/16/2016) Active. Paxil (20MG Tablet, one tablet Oral daily) Active. Amlodipine-Atorvastatin (Oral) Specific dose unknown - Active. Aspirin (325MG Tablet, 1/2 tablet Oral daily) Active. Lisinopril (40MG Tablet, one tablet Oral daily) Active. TraMADol HCl (50MG Tablet, one tablet Oral as needed) Active. TraZODone HCl (50MG Tablet, one tablet Oral daily) Active. Lipitor (40MG Tablet, one tablet Oral daily) Active. Medications Reconciled Past Surgical History (Derik Lebron DO; 07/09/2016 3:08 PM) AAA REPAIR (M0301) 2007. Cataract Surgery Cataract extraction with PC IOL OD 01/10/16, and OS 01/24/16 ( Prochoda). Other Problems (Derik Lebron DO; 07/09/2016 3:08 PM) Health education/counseling (Z71.89) Review of Systems (Derik Lebron DO; 07/09/2016 3:08 PM) General Not Present- Chills and Fever. Skin Not Present- Erythema, Skin Color Changes and Skin Problems. HEENT Not Present- Sleep Apnea. Neck Not Present- Neck Pain. Respiratory Not Present- Cough and Shortness of Breath. Cardiovascular Not Present- Chest Pain, Difficulty Breathing On Exertion, Fainting and Leg Pain and/or Swelling. Gastrointestinal Not Present- Abdominal Pain, Nausea and Vomiting. Female Genitourinary Not Present- Painful Urination. Musculoskeletal Not Present- Decreased Range of Motion, Joint Pain, Joint Stiffness, Joint Swelling, Muscle Pain and Muscle Weakness. Neurological Not Present- Dizziness, Focal Neurological Symptoms, Numbness in extremities, Trouble walking and Weakness. Psychiatric Not Present- Anorexia, Anxiety and Depression. Endocrine Not Present- Weight Loss. Hematology Not Present- Bleeding Problems, DVT and Easy Bruising. Vitals (Dea Pond RN; 07/09/2016 9:03 AM) 07/09/2016 9:02 AM Weight: 161.7 lb Height: 62in Body Surface Area: 1.75 m Body Mass Index: 29.58 kg/m Temp.: 98.1F Pulse: 80 (Regular) Resp.: 16 (Unlabored) BP: 120/68 (Sitting, Left Arm, Standard) Physical Exam (Derik Lebron DO; 07/09/2016 3:09 PM) The physical exam findings are as follows: Note:Physical examination of the right knee demonstrates normal appearing skin. There are no rashes or discoloration. Normal sensation and adequate perfusion. Assessment & Plan (Derik Lebron DO; 07/09/2016 3:10 PM) Primary osteoarthritis of right knee (M17.11) Impression: The patient has had intra-articular steroid injections, oral analgesia, NSAIDs and 6 weeks of physical therapy. Her right knee pain is significantly affecting her life. After educating the patient regarding treatment options with their associated risks and benefits, the patient elected to proceed with surgical treatment of the injury/pathology with RIGHT TOTAL KNEE ARTHROPLASTY. The risks and benefits of the specific procedure were explained and all questions and concerns were addressed and answered. Post operative rehabilitation requirements and expectations for optimal outcome were reviewed and the patient confirmed understanding these and committed to compliance. All questions answered. The patient will be optimized medically by consultation with their primary care physician prior to their procedure. The patient will be enrolled in our total knee arthroplasty class. All of the patient's questions were answered. She was also instructed to clear her house of anything that would business office associate the way of her utilizing a walker for ambulation. Pre-op testing (Z01.818) Impression: Z 51.81 Current Plans RBC ANTBDY SCRN-EA TECH (57831) ABO BLOOD TYPING (67853) RH (D) BLOOD TYPING (20244) BACT CULTURE SCRN-1ORGANISM (66439) (nasal MRSA) CBC & Platelets (Auto) (29679) Metabolic Panel, Comprehensive (22198) PT/INR (Prothrombin Time) (00059) Signed by Derik Lebron DO (07/09/2016 3:11 PM) There are no interval changes. Signed Derik Lebron DO (07/15/2016) [facility]
== END 2016-07-20 12:56 | disposition home health service (06) | DRG 470 ==
LOC: IN 07-15 06:02
PROVIDERS: ADMIT Orthopaedic Surgery; ATTEND Orthopaedic Surgery
PROC: 0SRC0J9 Replacement of Right Knee Joint with Synthetic Substitute, Cemented, Open Approach (ICD-10-PCS; principal; 2016-07-15)
DX: M17.11 Unilateral primary osteoarthritis, right knee (principal); M25.561 Pain in right knee; I10 Essential (primary) hypertension; M15.9 Polyosteoarthritis, unspecified; E78.5 Hyperlipidemia, unspecified; F32.9 Major depressive disorder, single episode, unspecified; Z79.899 Other long term (current) drug therapy
CPT/HCPCS: 36415; 82270; 85025; J0171; J0690; J1650; J1885; J2250; J2370; J2405; J2795; J7120; Q0163